=== PATIENT | female | born 1945 | race Caucasian/White ===

== ENCOUNTER 2016-09-30 15:24 | Emergency (ER) | payer MEDICARE ==
[~2016-09-30] VITALS: Ht 160 cm; Wt 90.3 kg
[~2016-09-30 15:24] MED LIST: ALLO300T PO; ASPI325T70 PO; CALC-157 PO; CLOP75TA PO; DILT180C29 PO; DILT180C64 PO; DIPH50CA59 PO; DIPH50TA3 PO; ESCITALOPRAM OXA5 MG PO; HYDR-2758 PO; INSU100I17 SQ; KRIL1CAP5 PO; LEVO200T5 PO; LEVO250T25 PO; LOSA50TA6 PO; MECL25TA3 PO; METF500T4 PO; METO25TA4 PO; POLY17PO5 PO; POTA20TA12 PO; POTA20TA82 PO; PRAV20TA2 PO; SOLI5TAB2 PO; TORS20TA2 PO; losartan PO; metoprolol PO
[2016-09-30 17:01] VITALS: BP 186/95
[2016-09-30] MEDS ORDERED: HYDROcodone/APAP 5/325MG 1 TAB TABLET PO ONE (18:00)
--- NOTE | 2016-09-30 18:09 | PHYS DOC ---
Past History Past Medical History: A-Fib, Alcoholism, Cancer, Depression, Diabetes, Hypertension, Other Additional Past Medical Histor: GOUT, URINARY RETENTION Past Surgical History: Cholecystectomy, Hysterectomy, Tonsillectomy, Other Additional Past Surgical Histo: UNKNOWN Smoking: Non-smoker Alcohol Use: Heavy Drug Use: None Adult General Chief Complaint Chief Complaint: L chest wall pain [facility] HPI Patient is a 71 year old F who presents with L sided chest wall pain after falling on her cane 3days ago. She feels that her pain is worse with movement and deep inspiration. She does not feel that her pain is alleviated by any factors. She has no other associated symptoms at this time Review of Systems Review of Systems Constitutional: Denies fever or chills [] Eyes: Denies change in visual acuity, redness, or eye pain [] HENT: Denies nasal congestion or sore throat [] Respiratory: Denies cough or shortness of breath [] Cardiovascular: No additional information not addressed in HPI [] GI: Denies abdominal pain, nausea, vomiting, bloody stools or diarrhea [] : Denies dysuria or hematuria [] Musculoskeletal: Denies back pain or joint pain [] Integument: Denies rash or skin lesions [] Neurologic: Denies headache, focal weakness or sensory changes [] Endocrine: Denies polyuria or polydipsia [] Family History Family History Noncontributory Current Medications Current Medications Current Medications Medications (Trade) Dose Ordered Sig/Khushi Start Time Stop Time Status Last Admin Dose Admin Acetaminophen/ Hydrocodone Bitart (Lortab 5/325) 1 tab 1X ONCE 09/30/16 18:00 09/30/16 18:01 DC Allergies Allergies Coded Allergies Type Severity Reaction Last Updated Verified Penicillins Allergy Intermediate Unknown 07/13/14 Yes Physical Exam Physical Exam Constitutional: Well developed, well nourished, mild distress, non-toxic appearance. [] HENT: Normocephalic, atraumatic, oropharynx moist, no oral exudates, Eyes: PERRLA, EOMI, conjunctiva normal, no discharge. [] Neck: Normal range of motion, no tenderness, supple, no stridor. [] Cardiovascular:Heart rate regular rhythm, no murmur [] Lungs & Thorax: Bilateral breath sounds clear to auscultation Focal Mild to moderate TTP over the lower lateral L ribs Abdomen: Bowel sounds normal, soft, no tenderness, no masses, no pulsatile masses. [] Skin: Warm, dry, no erythema, no rash. [] No bruising was noted Back: No tenderness, no CVA tenderness. [] Extremities: No tenderness, no cyanosis, no clubbing, ROM intact, no edema. [] Neurologic: Alert and oriented X 3, normal motor function, normal sensory function, no focal deficits noted. [] Psychologic: Affect normal, judgement normal, mood normal. [] Current Patient Data Vital Signs Vital Signs Date Time Temp Pulse Resp B/P (MAP) Pulse Ox O2 Delivery O2 Flow Rate FiO2 09/30/16 17:01 97.7 110 22 186/95 (125) 98 Room Air Lab Results Laboratory Tests Test 09/30/16 17:35 Glucose (Fingerstick) 90 mg/dL (70-99) Radiology/Procedures Radiology/Procedures reviewed radiology report Course & Med Decision Making Course & Med Decision Making Pertinent Labs and Imaging studies reviewed. (See chart for details) [] Dragon Disclaimer Dragon Disclaimer This chart was dictated in whole or in part using Voice Recognition software in a busy, high-work load, and often noisy Emergency Department environment. It may contain unintended and wholly unrecognized errors or omissions. Departure Departure: Impression: Primary Impression: Contusion of rib on left side Disposition: 01 HOME, SELF-CARE Condition: STABLE Referrals: OPAL CAMPOS APRN (PCP) Patient Instructions: Rib Contusion Additional Instructions: Opal was seen in the ED for rib pain. No emergency medical condition was found during the history and physical exam. She did have an xray of her chest. She was given pain medication and advised to use lidocaine patches for pain. She was advised to continue taking deep breaths and to return to the ED if she develops new or worsening symptoms. She was advised to follow up with her primary care doctor in the next 3-5days for further management. Problem Qualifiers Primary Impression: Contusion of rib on left side Encounter type: initial encounter Qualified Codes: S20.212A - Contusion of left front wall of thorax, initial encounter PAULA ACUNA MD Sep 30, 2016 18:09
[2016-09-30] MEDS ORDERED: LIDOCAINE (700MG/PATCH) PATCH. TD ONE (19:30)
--- NOTE | 2016-10-01 08:45 | RAD ---
Indication fall, pain. A single view of the chest was obtained as well as films targeted to left ribs. Note is made of a previous examination of the chest 02/17/2016. Heart size is unchanged. Slightly tortuous thoracic aorta is noted. There is no acute parenchymal infiltrate. Significant pleural fluid is not seen. There is no pneumothorax. Films targeted to left ribs appear unremarkable. No fracture or rib anomaly is seen. IMPRESSION: No acute finding in the chest. Normal plain films left ribs
== END 2016-09-30 19:21 | disposition home or self-care (01) ==
LOC: ER 15:24
DX: S20.212A Contusion of left front wall of thorax, initial encounter (principal); I48.91 Unspecified atrial fibrillation; F10.20 Alcohol dependence, uncomplicated; E11.9 Type 2 diabetes mellitus without complications; I10 Essential (primary) hypertension; M10.9 Gout, unspecified; Z88.0 Allergy status to penicillin; W20.8XXA Other cause of strike by thrown, projected or falling object, initial encounter; Y93.89 Activity, other specified; Y99.8 Other external cause status; Y92.89 Other specified places as the place of occurrence of the external cause
CPT/HCPCS: 71100; 82947; 99284